=== PATIENT | male | born 1955 | race Caucasian/White ===

== ENCOUNTER 2017-03-08 17:38 | Emergency (ER) | payer BC, OTHER ==
[2017-03-08 17:44] VITALS: BP 160/80; PULSE 77; TEMP 99; BMI 25.2
[2017-03-08] MEDS ORDERED: DIPHTH,PERTUSS(ACELL),TET 0.5 ML DISP.SYRIN IM ONE (18:42)
--- NOTE | 2017-03-08 18:43 | PDOC ---
History of Present Illness <Clementina Julien - Last Filed: 03/08/17 18:43> - History of Present Illness Initial Comments: 03/08/17 18:49 The patient is a 61 year old male, with no past medical history, who presents to the emergency department with a transverse superficial laceration to the dorsum of his right wrist obtained while moving a refrigerator at work 15 minutes prior to his arrival to the [facility]. He denies any numbness or tingling in his right hand or digits. He states he can wiggle his fingers and flex his right wrist without pain. He denies ever having a tetanus vaccine. Allergies: NKDA <Wanda Taylor - Last Filed: 03/08/17 18:58> - General Chief Complaint: Laceration Stated Complaint: LACERATION Time Seen by Provider: 03/08/17 17:46 Past History - Past Medical History Other medical history: none - Psycho/Social/Smoking Cessation Hx Anxiety: No Suicidal Ideation: No Smoking History: Never smoked Have you smoked in the past 12 months: No Information on smoking cessation initiated: No Hx Alcohol Use: No Drug/Substance Use Hx: No Substance Use Type: None <Clementina Julien - Last Filed: 03/08/17 18:43> <Wanda Taylor - Last Filed: 03/08/17 18:58> - Past Medical History Allergies/Adverse Reactions: Allergies Allergy/AdvReac Type Severity Reaction Status Date / Time No Known Allergies Allergy Verified 03/08/17 17:40 Review of Systems - Review of Systems Able to Perform ROS?: Yes Musculoskeletal: No: Joint Pain, Joint Swelling, Muscle Pain, Muscle Weakness, Joint Stiffness Integumentary: Yes: Symptoms Reported, See HPI, Other (laceration to dorsum of R wrist) <Wanda Taylor - Last Filed: 03/08/17 18:58> *Physical Exam - Vital Signs Last Vital Signs Temp Pulse Resp BP Pulse Ox 99.0 F 77 18 160/80 100 03/08/17 17:40 03/08/17 17:40 03/08/17 17:40 03/08/17 17:40 03/08/17 17:40 <Clementina Julien - Last Filed: 03/08/17 18:43> - Vital Signs Last Vital Signs Temp Pulse Resp BP Pulse Ox 99.0 F 77 18 160/80 100 03/08/17 17:40 03/08/17 17:40 03/08/17 17:40 03/08/17 17:40 03/08/17 17:40 - Physical Exam General Appearance: Yes: Nourished, Appropriately Dressed HEENT: positive: EOMI, KAYLA, Normal Voice Neck: positive: Supple Integumentary: positive: Other (transverse superficial laceration to dorsum of R wrist) 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, Fully Oriented, Alert, Normal Mood/ Affect, Normal Response, Motor Strength 5/5, Respond to painful stimul, Responsive <Wanda aTylor - Last Filed: 03/08/17 18:58> Procedures - Consent Consent obtained: Verbal - Laceration/Wound Repair Right Dorsal Wrist Wound Length: 2.6 to 5.0 cm Wound Explored: clean Wound's Depth, Shape: superficial, flap Irrigated w/ Saline: Yes Betadine Prep: Yes Anesthesia: 1% Lidocaine w/ Epi Amount of Anesthetic (ccs): 5 Wound Debrided: minimal Wound Repaired With: Sutures Suture Size/Type: 5:0 Number of Sutures: 5 Sterile Dressing Applied: Yes (xeroform, dry gauze) <Clementina Julien - Last Filed: 03/08/17 18:43> Medical Decision Making - Medical Decision Making 03/08/17 18:42 61 yo M with no PMH presents to [facility] with laceration to dorsal aspect of R wrist. -Tdap -lac repair (see procedure note) <Clementina Julien - Last Filed: 03/08/17 18:43> *DC/Admit/Observation/Transfer - Discharge Dispostion Admit: No <Clementina Julien - Last Filed: 03/08/17 18:43> - Attestations Scribe Attestion: 03/08/17 18:53 Documentation prepared by Wanda Taylor, acting as director medical science for Emergency Dept, Clementina ROQUE <Wanda Taylor - Last Filed: 03/08/17 18:58> Diagnosis at time of Disposition: Laceration of wrist - Discharge Dispostion Disposition: HOME Condition at time of disposition: Stable - Patient Instructions Printed Discharge Instructions: DI for Laceration Repair Additional Instructions: As discussed, please keep area of laceration clean and dry for the next 24-48 hours. Afterwards you may wash with mild soap and water. Return to [facility] or your primary care doctor in the [facility] for suture removal in 10- 14 days. If you experience any redness, swelling, streaking, warmth, to the site of the cut, or develop fever, nausea, vomiting, or diarrhea, please return to the ER. [place] se discuti, por favor mantenga el josh de laceracin limpia y seca maddy las siguientes 24-48 horas. Despus puede lavarse con jabn suave y agua. Regrese lilibeth o a fine mdico [facility] para [facility]itar las suturas en 10-14 baker. Si experimenta enrojecimiento, hinchazn, formacin de tank, calor, al sitio de laceracion, o si tiene fiebre, nuseas, v mitos o diarrea, por favor regrese a la trevor de emergencias. Print Language: [place]
== END 2017-03-08 19:03 | disposition home or self-care (01) ==
LOC: JERFT 17:38
PROC: 0HQDXZZ Repair Right Lower Arm Skin, External Approach (ICD-10-PCS; principal; 2017-03-08)
PROC: 3E0234Z Introduction of Serum, Toxoid and Vaccine into Muscle, Percutaneous Approach (ICD-10-PCS; 2017-03-08)
DX: S61.511A Laceration without foreign body of right wrist, initial encounter (principal); W29.0XXA Contact with powered kitchen appliance, initial encounter; Y93.E9 Activity, other interior property and clothing maintenance; Y92.038 Other place in apartment as the place of occurrence of the external cause; Y99.0 Civilian activity done for income or pay
CPT/HCPCS: 90715; 99281-25